=== PATIENT | male | born 1945 | race Caucasian/White ===

== ENCOUNTER 2016-10-28 14:56 | Emergency (ER) | payer MEDICARE, OTHER ==
[~2016-10-28 14:56] MED LIST: AMLODIPINE BESYL5 MG PO; ASPIRIN PO; ASPIRIN81 M1 PO; ASPIRIN81 M2 PO; FISH OIL 1,0001 CAP PO; LISINOPRIL PO; LISINOPRIL20 MG PO; LOSARTAN POTASS50 MG PO; METRONIDAZOLE PO; NOVOLIN 70/30 V10 M1; NOVOLIN 70/30 V10 M1 SUBQ; NOVOLOG7030 SUBQ; PANTOPRAZOLE SO40 MG PO; PERCOCET 5-3251 TAB PO; PERCOCET PO; PRAVACHOL20 MG; PRAVASTATIN SOD20 MG PO; PROTONIX PO
== END 2016-10-28 16:34 | disposition home or self-care (01) ==
LOC: CED 14:56 → CFTX 14:56
DX: H61.21 Impacted cerumen, right ear (principal); E11.9 Type 2 diabetes mellitus without complications; I10 Essential (primary) hypertension; E78.5 Hyperlipidemia, unspecified; Z79.82 Long term (current) use of aspirin; Z79.899 Other long term (current) drug therapy; Z79.4 Long term (current) use of insulin
CPT/HCPCS: 69209; 99283